=== PATIENT | male | born 1955 | race Caucasian/White ===

== ENCOUNTER 2018-05-05 06:16 | Inpatient (IN) | payer MEDICARE, MEDICAID ==
[~2018-05-05] VITALS: Ht 165.1 cm; Wt 71.1 kg
[2018-05-05] MEDS ORDERED: SODIUM CHLORIDE 0.9% 1,000 ML IV ONE (07:46)
[2018-05-05 07:51] LABS: Basophils # (auto) 0.1 uL; Eosinophils # (auto) 0.1 uL; Eosinophils % (auto) 0.5 % (0.0-7.0); Hemoglobin 11.8 g/dL (13.5-17.5); Mean Corpuscular Hgb Conc. 32.6 g/dL (32.0-36.0); Nucleated Red Blood Cells % 0.1 %
[2018-05-05 07:54] LABS: Basophils % (auto) 0.7 % (0.0-2.0); Hematocrit 36.2 % (41.0-53.0); Lymphocytes % (auto) 14.4 % (10.0-50.0); Mean Corpuscular Hemoglobin 24.1 pg (28.0-32.0); Mean Corpuscular Volume 73.8 fL (80.0-100.0); Monocytes # (auto) 0.9 uL; Monocytes % (auto) 6.8 % (0.0-12.0); Neutrophils # (auto) 10.6 uL; Neutrophils % (auto) 77.6 % (37.0-80.0); Platelet Count (auto) 566 10^3/uL (140-450); Red Cell Distribution Width 15.8 % (11.8-14.3); White Blood Cell 13.7 10^3/uL (4.4-10.8)
[2018-05-05] MEDS ORDERED: ONDANSETRON HCL 4 MG/2 ML VIAL IV ONE (08:00)
[2018-05-05] MEDS ORDERED: MORPHINE SULFATE 4 MG/ML SYR/VIAL IV ONE ×2 (08:00→10:30)
[2018-05-05 08:19] LABS: BUN/Creatinine Ratio 13.1; Potassium 3.8 mmol/L (3.5-5.1)
[2018-05-05 08:20] LABS: Albumin 3.3 g/dL (3.4-5.0); Bilirubin, Total 0.5 mg/dL (0.2-1.0); Calcium 8.5 mg/dL (8.5-10.1); Magnesium 2.8 mg/dL (1.6-2.6)
[2018-05-05 08:32] LABS: Urine WBC None Seen /hpf (0 - 3)
[2018-05-05 08:53] LABS: Urine Bacteria NONE SEEN /hpf (None Seen); Urine Blood 3+ /uL (Negative); Urine Hyaline Cast FEW /lpf (0 - 2); Urine Specific Gravity 1.014 (1.001-1.035)
[2018-05-05] MEDS ORDERED: ENOXAPARIN SOD 80 MG/0.8ML SYRINGE SC ONE ×2 (09:45→11:45)
[2018-05-05] MEDS ORDERED: cefTRIAXone 1GM/10ml IVPUSH 10 ML IV ONE (11:00)
[2018-05-05] MEDS ORDERED: VANCOMYCIN PER PHARMACY 0 MG IV SCH (11:00)
[2018-05-05] MEDS ORDERED: LOSARTAN POTASSIUM 50 MG TAB PO ONE ×2 (11:15→11:45)
[2018-05-05] MEDS ORDERED: METOPROLOL SUCCINATE XL 50 MG TAB PO ONE ×2 (11:15→11:45)
[2018-05-05] MEDS ORDERED: OXYCODONE W/ ACETAMINOPHEN 5/325MG TABLET PO PRN (11:15)
[2018-05-05] MEDS ORDERED: DULoxetine HCL 30 MG CAP PO ONE ×2 (11:15→11:45)
[2018-05-05] MEDS ORDERED: amLODIPine BESYLATE 5 MG TAB PO ONE ×2 (11:15→11:45)
[2018-05-05] MEDS ORDERED: ACETAMINOPHEN 325 MG TAB PO PRN (11:30)
[2018-05-05] MEDS ORDERED: DOCUSATE SOD 100 MG CAP PO PRN (11:30)
[2018-05-05] MEDS ORDERED: MORPHINE SULFATE 4 MG/ML SYR/VIAL IV PRN (11:30)
[2018-05-05] MEDS ORDERED: PANTOPRAZOLE 40 MG/10 ML VIAL IV ONE ×2 (11:30→11:45)
[2018-05-05] MEDS ORDERED: POTASSIUM EFFERVESENT TAB 25 MEQ PO ONE ×2 (11:30→11:45)
[2018-05-05] MEDS ORDERED: NITROGLYCERIN 0.4 MG SL TAB SL PRN (11:30)
[2018-05-05 11:36] VITALS: BP 128/87
[2018-05-05] MEDS: SODIUM CHLORIDE 0.9% 1,000 ML IV SCH ×2 (11:41→19:57)
[2018-05-05] MEDS ORDERED: cloNIDine HCL 0.1 MG TAB PO PRN (11:45)
[2018-05-05] MEDS ORDERED: ASCORBIC ACID 500 MG TAB PO ONE (11:45)
[2018-05-05] MEDS ORDERED: ZINC SULFATE 220mg CAP or TAB PO ONE (11:45)
[2018-05-05] MEDS ORDERED: TRIAMTERENE/HCTZ 37.5/25 MG CAP/TAB PO ONE (11:45)
[2018-05-05] MEDS ORDERED: MULTIPLE VITAMIN TAB PO ONE (11:45)
[2018-05-05 11:46] LABS: INR 0.99 (0.9-1.15); Prothrombin Time 10.6 sec (9.27-12.13)
[2018-05-05] MEDS: ALBUTEROL SULF 2.5 MG/0.5ML(0.5%) NEB SOLN NEB SCH ×2 (11:50→18:53)
[2018-05-05] MEDS ORDERED: VANCOMYCIN 1GM/250ML 250 ML IV ONE (12:00)
[2018-05-05] MEDS: ONDANSETRON HCL 4 MG/2 ML VIAL IV PRN (12:59)
[2018-05-05] MEDS: MORPHINE SULFATE 4 MG/ML SYR/VIAL IV PRN (13:00)
[2018-05-05] MEDS: GABAPENTIN 300 MG CAP PO SCH ×2 (15:01→22:06)
[2018-05-05 15:30] VITALS: BP 121/81
[2018-05-05] MEDS: HYDROcodone-ACET 5/325MG TAB PO PRN (16:41)
[2018-05-05 22:00] VITALS: BP 107/64
[2018-05-05] MEDS ORDERED: FAMOTIDINE 20 MG TAB PO SCH (22:00)
[2018-05-05] MEDS: ENOXAPARIN SOD 80 MG/0.8ML SYRINGE SC SCH (22:07)
[2018-05-05] MEDS: PRAVASTATIN SODIUM 20 MG TAB PO SCH (22:07)
[2018-05-05] MEDS: TEMAZEPAM 15 MG CAP PO PRN (22:07)
[2018-05-05] MEDS: MONTELUKAST SODIUM 10 MG TAB PO SCH (22:07)
[2018-05-05] MEDS: ASCORBIC ACID 500 MG TAB PO SCH (22:07)
[2018-05-06] MEDS: ALBUTEROL SULF 2.5 MG/0.5ML(0.5%) NEB SOLN NEB SCH ×4 (00:24→18:54)
[2018-05-06] MEDS: SODIUM CHLORIDE 0.9% 1,000 ML IV SCH ×3 (04:27→16:23)
[2018-05-06 05:00] VITALS: BP 103/65
[2018-05-06] MEDS: GABAPENTIN 300 MG CAP PO SCH ×3 (05:26→21:51)
[2018-05-06 06:13] LABS: Basophils # (auto) 0.1 uL; Eosinophils # (auto) 0.3 uL; Lymphocytes # (auto) 2.4 uL; Mean Corpuscular Volume 73.7 fL (80.0-100.0)
[2018-05-06 06:17] LABS: Basophils % (auto) 0.9 % (0.0-2.0); Hematocrit 29.1 % (41.0-53.0); Hemoglobin 9.5 g/dL (13.5-17.5); Lymphocytes % (auto) 22.3 % (10.0-50.0); Mean Corpuscular Hemoglobin 24.1 pg (28.0-32.0); Mean Corpuscular Hgb Conc. 32.7 g/dL (32.0-36.0); Monocytes % (auto) 9.3 % (0.0-12.0); Neutrophils # (auto) 6.9 uL; Neutrophils % (auto) 64.5 % (37.0-80.0); Nucleated Red Blood Cells % 0.1 %; Platelet Count (auto) 405 10^3/uL (140-450); Red Blood Cells 3.95 10^6/uL (4.5-5.90); Red Cell Distribution Width 15.9 % (11.8-14.3); White Blood Cell 10.7 10^3/uL (4.4-10.8)
[2018-05-06 06:32] LABS: Albumin 2.5 g/dL (3.4-5.0); BUN/Creatinine Ratio 17.6; Calcium 7.7 mg/dL (8.5-10.1); Potassium 3.2 mmol/L (3.5-5.1)
[2018-05-06 06:34] LABS: Total Protein 6.9 g/dL (6.4-8.2)
[2018-05-06] MEDS: MORPHINE SULFATE 4 MG/ML SYR/VIAL IV PRN ×2 (08:56→21:52)
[2018-05-06 08:58] VITALS: BP 103/53
[2018-05-06] MEDS ORDERED: cefTRIAXone 1GM/10ml IVPUSH 10 ML IV SCH (09:00)
[2018-05-06] MEDS ORDERED: ADENOSINE 73 MG in GIVE UN-DILUTED 0 ML IV ONE (09:30)
[2018-05-06] MEDS: amLODIPine BESYLATE 5 MG TAB PO SCH (10:00)
[2018-05-06] MEDS: METOPROLOL SUCCINATE XL 50 MG TAB PO SCH (10:00)
[2018-05-06] MEDS: TIZANIDINE 2 MG PO SCH (10:00)
[2018-05-06] MEDS: LOSARTAN POTASSIUM 50 MG TAB PO SCH (10:00)
[2018-05-06 10:28] VITALS: BP 111/61
[2018-05-06 12:18] VITALS: BP 103/61
[2018-05-06] MEDS: POTASSIUM EFFERVESENT TAB 25 MEQ PO SCH (12:26)
[2018-05-06] MEDS: ZINC SULFATE 220mg CAP or TAB PO SCH (12:29)
[2018-05-06] MEDS: DULoxetine HCL 30 MG CAP PO SCH (12:30)
[2018-05-06] MEDS: HYDROcodone-ACET 5/325MG TAB PO PRN (12:33)
[2018-05-06] MEDS: MULTIPLE VITAMIN TAB PO SCH (12:34)
[2018-05-06] MEDS: ASCORBIC ACID 500 MG TAB PO SCH ×2 (12:34→21:51)
[2018-05-06] MEDS: TRIAMTERENE/HCTZ 37.5/25 MG CAP/TAB PO SCH (12:34)
[2018-05-06] MEDS: ENOXAPARIN SOD 80 MG/0.8ML SYRINGE SC SCH (12:35)
[2018-05-06] MEDS: PANTOPRAZOLE 40 MG/10 ML VIAL IV SCH (12:37)
[2018-05-06] MEDS: SUCRALFATE 1 GM TAB PO SCH ×2 (16:22→21:50)
[2018-05-06 17:13] VITALS: BP 127/74
[2018-05-06] MEDS: AMIODARONE HCL 200 MG TAB PO SCH ×2 (18:33→21:50)
[2018-05-06] MEDS: MONTELUKAST SODIUM 10 MG TAB PO SCH (21:51)
[2018-05-06] MEDS: APIXABAN 5 MG TAB PO SCH (21:51)
[2018-05-06] MEDS: PRAVASTATIN SODIUM 20 MG TAB PO SCH (21:51)
[2018-05-06] MEDS: TEMAZEPAM 15 MG CAP PO PRN (21:52)
[2018-05-06 22:19] VITALS: BP 111/69
[2018-05-07] MEDS: ALBUTEROL SULF 2.5 MG/0.5ML(0.5%) NEB SOLN NEB SCH ×4 (00:13→19:09)
[2018-05-07] MEDS: MORPHINE SULFATE 4 MG/ML SYR/VIAL IV PRN ×2 (02:18→13:43)
[2018-05-07] MEDS: SODIUM CHLORIDE 0.9% 1,000 ML IV SCH ×3 (04:47→20:26)
[2018-05-07 05:00] VITALS: BP 124/71
[2018-05-07] MEDS: GABAPENTIN 300 MG CAP PO SCH ×3 (06:34→20:27)
[2018-05-07] MEDS: SUCRALFATE 1 GM TAB PO SCH ×4 (06:35→20:27)
[2018-05-07 06:53] LABS: Basophils # (auto) 0.1 uL; Hemoglobin 9.7 g/dL (13.5-17.5); Lymphocytes # (auto) 2.1 uL
[2018-05-07 06:54] LABS: Basophils % (auto) 0.7 % (0.0-2.0); Eosinophils # (auto) 0.2 uL; Eosinophils % (auto) 1.5 % (0.0-7.0); Hematocrit 30.8 % (41.0-53.0); Lymphocytes % (auto) 17.8 % (10.0-50.0); Mean Corpuscular Hemoglobin 23.2 pg (28.0-32.0); Mean Corpuscular Hgb Conc. 31.5 g/dL (32.0-36.0); Mean Corpuscular Volume 73.6 fL (80.0-100.0); Monocytes # (auto) 1.4 uL; Monocytes % (auto) 11.6 % (0.0-12.0); Neutrophils # (auto) 8.2 uL; Neutrophils % (auto) 68.4 % (37.0-80.0); Nucleated Red Blood Cells % 0.1 %; Platelet Count (auto) 424 10^3/uL (140-450); Red Blood Cells 4.19 10^6/uL (4.5-5.90); Red Cell Distribution Width 15.8 % (11.8-14.3)
[2018-05-07 07:13] LABS: BUN/Creatinine Ratio 13.2; Calcium 8.1 mg/dL (8.5-10.1); Potassium 3.2 mmol/L (3.5-5.1)
[2018-05-07 08:00] VITALS: BP_SYST 103; BP_SYST 118; BP_DIAS 61; BP_DIAS 70
[2018-05-07] MEDS: PANTOPRAZOLE 40 MG/10 ML VIAL IV SCH ×2 (09:33→20:26)
[2018-05-07] MEDS: METOPROLOL SUCCINATE XL 50 MG TAB PO SCH (09:34)
[2018-05-07] MEDS: APIXABAN 5 MG TAB PO SCH ×2 (09:34→20:27)
[2018-05-07] MEDS: AMIODARONE HCL 200 MG TAB PO SCH ×2 (09:34→20:27)
[2018-05-07] MEDS: LOSARTAN POTASSIUM 50 MG TAB PO SCH (09:35)
[2018-05-07] MEDS: ZINC SULFATE 220mg CAP or TAB PO SCH (09:35)
[2018-05-07] MEDS: DULoxetine HCL 30 MG CAP PO SCH (09:35)
[2018-05-07] MEDS: TRIAMTERENE/HCTZ 37.5/25 MG CAP/TAB PO SCH (09:35)
[2018-05-07] MEDS: MULTIPLE VITAMIN TAB PO SCH (09:35)
[2018-05-07] MEDS: amLODIPine BESYLATE 5 MG TAB PO SCH (09:36)
[2018-05-07] MEDS: ASCORBIC ACID 500 MG TAB PO SCH ×2 (09:36→20:28)
[2018-05-07] MEDS: POTASSIUM EFFERVESENT TAB 25 MEQ PO SCH (09:36)
[2018-05-07] MEDS: TIZANIDINE 2 MG PO SCH (09:41)
[2018-05-07] MEDS ORDERED: POTASSIUM CHL 20 Meq TABLET PO SCH ×2 (10:00→20:00)
[2018-05-07] MEDS ORDERED: TRIATAB3 PO (12:29)
[2018-05-07] MEDS ORDERED: DULO20CA PO (12:29)
[2018-05-07] MEDS ORDERED: PERCOT PO (12:29)
[2018-05-07] MEDS ORDERED: TIZA2CAP12 PO (12:29)
[2018-05-07] MEDS ORDERED: LOSA-49 PO (12:29)
[2018-05-07] MEDS ORDERED: PANT1INJ3 PO (12:29)
[2018-05-07] MEDS ORDERED: PRAV20TA3 PO (12:29)
[2018-05-07] MEDS ORDERED: GABA300C10 PO (12:29)
[2018-05-07] MEDS ORDERED: AMLO5TAB13 PO (12:29)
[2018-05-07] MEDS ORDERED: METO-169 PO (12:29)
[2018-05-07] MEDS ORDERED: MONT5CHW17 PO (12:29)
[2018-05-07 13:00] VITALS: BP_SYST 128; BP_SYST 140; BP_DIAS 71; BP_DIAS 83
[2018-05-07] MEDS: ONDANSETRON HCL 4 MG/2 ML VIAL IV PRN (14:03)
[2018-05-07 16:00] VITALS: BP 109/78
[2018-05-07] MEDS: HYDROcodone-ACET 5/325MG TAB PO PRN (19:10)
[2018-05-07] MEDS: MONTELUKAST SODIUM 10 MG TAB PO SCH (20:28)
[2018-05-07] MEDS: PRAVASTATIN SODIUM 20 MG TAB PO SCH (20:28)
[2018-05-07] MEDS: TEMAZEPAM 15 MG CAP PO PRN (20:28)
[2018-05-07 22:00] VITALS: BP 94/54
[2018-05-08] VITALS (7 sets, daily range): BP systolic 105–128; BP diastolic 52–75
[2018-05-08] MEDS: ALBUTEROL SULF 2.5 MG/0.5ML(0.5%) NEB SOLN NEB SCH ×5 (00:11→18:35)
[2018-05-08] MEDS: HYDROcodone-ACET 5/325MG TAB PO PRN ×3 (03:44→13:48)
[2018-05-08] MEDS: GABAPENTIN 300 MG CAP PO SCH ×3 (05:53→20:31)
[2018-05-08] MEDS: SUCRALFATE 1 GM TAB PO SCH ×4 (05:53→20:30)
[2018-05-08] MEDS: SODIUM CHLORIDE 0.9% 1,000 ML IV SCH ×3 (05:53→23:01)
[2018-05-08 06:07] LABS: Basophils # (auto) 0.1 uL; Eosinophils # (auto) 0.2 uL; Eosinophils % (auto) 1.3 % (0.0-7.0); Monocytes # (auto) 1.6 uL; Nucleated Red Blood Cells % 0.1 %; Platelet Count (auto) 382 10^3/uL (140-450); Red Blood Cells 3.73 10^6/uL (4.5-5.90)
[2018-05-08 06:13] LABS: Basophils % (auto) 0.6 % (0.0-2.0); Hematocrit 27.1 % (41.0-53.0); Lymphocytes # (auto) 1.8 uL; Lymphocytes % (auto) 14.1 % (10.0-50.0); Mean Corpuscular Hgb Conc. 33.1 g/dL (32.0-36.0); Mean Corpuscular Volume 72.6 fL (80.0-100.0); Monocytes % (auto) 12.6 % (0.0-12.0); Neutrophils # (auto) 9.2 uL; Neutrophils % (auto) 71.4 % (37.0-80.0); Red Cell Distribution Width 16.1 % (11.8-14.3); White Blood Cell 12.9 10^3/uL (4.4-10.8)
[2018-05-08 06:28] LABS: Calcium 7.6 mg/dL (8.5-10.1)
[2018-05-08 06:30] LABS: Potassium 2.9 mmol/L (3.5-5.1)
[2018-05-08 06:31] LABS: BUN/Creatinine Ratio 9.2
[2018-05-08] MEDS ORDERED: POTASSIUM CHL 20 Meq TABLET PO ONE (06:45)
[2018-05-08] MEDS: APIXABAN 5 MG TAB PO SCH ×2 (08:52→20:31)
[2018-05-08] MEDS: DULoxetine HCL 30 MG CAP PO SCH (08:52)
[2018-05-08] MEDS: ZINC SULFATE 220mg CAP or TAB PO SCH (08:52)
[2018-05-08] MEDS: PANTOPRAZOLE 40 MG/10 ML VIAL IV SCH ×2 (08:52→20:29)
[2018-05-08] MEDS: LOSARTAN POTASSIUM 50 MG TAB PO SCH (08:53)
[2018-05-08] MEDS: TRIAMTERENE/HCTZ 37.5/25 MG CAP/TAB PO SCH (08:53)
[2018-05-08] MEDS: MULTIPLE VITAMIN TAB PO SCH (08:54)
[2018-05-08] MEDS: METOPROLOL SUCCINATE XL 50 MG TAB PO SCH (08:54)
[2018-05-08] MEDS: amLODIPine BESYLATE 5 MG TAB PO SCH (08:55)
[2018-05-08] MEDS: TIZANIDINE 2 MG PO SCH (08:55)
[2018-05-08] MEDS: AMIODARONE HCL 200 MG TAB PO SCH ×2 (08:55→20:30)
[2018-05-08] MEDS: ASCORBIC ACID 500 MG TAB PO SCH ×2 (08:55→20:32)
[2018-05-08] MEDS: POTASSIUM EFFERVESENT TAB 25 MEQ PO SCH (08:56)
[2018-05-08] MEDS: POTASSIUM CHL 20 Meq TABLET PO SCH ×3 (10:15→20:31)
[2018-05-08] MEDS ORDERED: HYDROcodone-ACET 5/325MG TAB PO ONE (16:00)
[2018-05-08] MEDS ORDERED: HYDROcodone-ACET 10/325MG TAB PO PRN ×2 (16:00→16:15)
[2018-05-08] MEDS: Ensure Enlive Strawberry 8oz Bottle PO SCH (18:00)
[2018-05-08] MEDS: PRAVASTATIN SODIUM 20 MG TAB PO SCH (20:31)
[2018-05-08] MEDS: MONTELUKAST SODIUM 10 MG TAB PO SCH (20:32)
[2018-05-08] MEDS: HYDROcodone-ACET 10/325MG TAB PO PRN (20:33)
[2018-05-08] MEDS ORDERED: CYCLOBENZAPRINE HCL 10 MG TAB PO ONE (22:30)
[2018-05-08] MEDS ORDERED: LOPERAMIDE HCL 2 MG CAP PO SCH (23:00)
[2018-05-08] MEDS ORDERED: LOPERAMIDE HCL 2 MG CAP PO ONE (23:00)
[2018-05-09] MEDS: ALBUTEROL SULF 2.5 MG/0.5ML(0.5%) NEB SOLN NEB SCH ×4 (00:22→18:37)
[2018-05-09 04:32] VITALS: BP 120/81
[2018-05-09 06:34] LABS: Basophils # (auto) 0.1 uL; Eosinophils # (auto) 0.2 uL; Hemoglobin 9.1 g/dL (13.5-17.5); Lymphocytes # (auto) 1.8 uL; Lymphocytes % (auto) 15.1 % (10.0-50.0)
[2018-05-09] MEDS: HYDROcodone-ACET 10/325MG TAB PO PRN ×2 (06:36→13:42)
[2018-05-09] MEDS: SODIUM CHLORIDE 0.9% 1,000 ML IV SCH ×2 (06:36→15:20)
[2018-05-09] MEDS: GABAPENTIN 300 MG CAP PO SCH ×2 (06:36→14:00)
[2018-05-09] MEDS: SUCRALFATE 1 GM TAB PO SCH ×3 (06:36→17:00)
[2018-05-09 06:37] LABS: Basophils % (auto) 0.5 % (0.0-2.0); Eosinophils % (auto) 1.7 % (0.0-7.0); Hematocrit 28.1 % (41.0-53.0); Mean Corpuscular Hemoglobin 23.8 pg (28.0-32.0); Mean Corpuscular Hgb Conc. 32.5 g/dL (32.0-36.0); Mean Corpuscular Volume 73.4 fL (80.0-100.0); Monocytes # (auto) 1.3 uL; Monocytes % (auto) 11.2 % (0.0-12.0); Neutrophils # (auto) 8.6 uL; Neutrophils % (auto) 71.5 % (37.0-80.0); Platelet Count (auto) 418 10^3/uL (140-450); Red Blood Cells 3.83 10^6/uL (4.5-5.90); Red Cell Distribution Width 16.4 % (11.8-14.3)
[2018-05-09 06:43] LABS: BUN/Creatinine Ratio 10.8; Calcium 7.7 mg/dL (8.5-10.1); Potassium 3.9 mmol/L (3.5-5.1)
[2018-05-09 08:00] VITALS: BP 110/77
[2018-05-09 09:24] VITALS: BP 110/77
[2018-05-09] MEDS: TIZANIDINE 2 MG PO SCH (10:00)
[2018-05-09] MEDS: Ensure Enlive Strawberry 8oz Bottle PO SCH ×2 (10:19→18:00)
[2018-05-09 11:59] VITALS: BP 117/77
[2018-05-09] MEDS: ZINC SULFATE 220mg CAP or TAB PO SCH (13:36)
[2018-05-09] MEDS: PANTOPRAZOLE 40 MG/10 ML VIAL IV SCH (13:36)
[2018-05-09] MEDS: AMIODARONE HCL 200 MG TAB PO SCH (13:37)
[2018-05-09] MEDS: LOSARTAN POTASSIUM 50 MG TAB PO SCH (13:37)
[2018-05-09] MEDS: DULoxetine HCL 30 MG CAP PO SCH (13:39)
[2018-05-09] MEDS: POTASSIUM EFFERVESENT TAB 25 MEQ PO SCH (13:39)
[2018-05-09] MEDS: TRIAMTERENE/HCTZ 37.5/25 MG CAP/TAB PO SCH (13:39)
[2018-05-09] MEDS: APIXABAN 5 MG TAB PO SCH (13:39)
[2018-05-09] MEDS: METOPROLOL SUCCINATE XL 50 MG TAB PO SCH (13:40)
[2018-05-09] MEDS: MULTIPLE VITAMIN TAB PO SCH (13:40)
[2018-05-09] MEDS: amLODIPine BESYLATE 5 MG TAB PO SCH (13:40)
[2018-05-09] MEDS: ASCORBIC ACID 500 MG TAB PO SCH (13:41)
[2018-05-09 16:58] VITALS: BP 119/74
[2018-05-09 17:13] VITALS: BP 110/77
[2018-05-13] MEDS ORDERED: APIXABAN 5 MG TAB PO SCH (22:00)
== END 2018-05-09 18:30 | DRG 682 ==
LOC: EDBD 06:16 → ER 06:23 → TELE 06:24 → TELE-EAST 15:37
PROVIDERS: ADMIT Internal Medicine; ATTEND Internal Medicine
DX: N17.0 Acute kidney failure with tubular necrosis (principal); E43 Unspecified severe protein-calorie malnutrition; I82.412 Acute embolism and thrombosis of left femoral vein; E87.1 Hypo-osmolality and hyponatremia; I31.3 Pericardial effusion (noninflammatory); I82.442 Acute embolism and thrombosis of left tibial vein; N18.3 Chronic kidney disease, stage 3 (moderate); I12.9 Hypertensive chronic kidney disease with stage 1 through stage 4 chronic kidney disease, or unspecified chronic kidney disease; E83.42 Hypomagnesemia; E78.5 Hyperlipidemia, unspecified; J45.909 Unspecified asthma, uncomplicated; F32.9 Major depressive disorder, single episode, unspecified; E87.6 Hypokalemia; E86.0 Dehydration; D63.8 Anemia in other chronic diseases classified elsewhere; I73.9 Peripheral vascular disease, unspecified; I25.10 Atherosclerotic heart disease of native coronary artery without angina pectoris; K59.00 Constipation, unspecified; K80.20 Calculus of gallbladder without cholecystitis without obstruction; Z96.659 Presence of unspecified artificial knee joint; Z87.11 Personal history of peptic ulcer disease; Z68.26 Body mass index [BMI] 26.0-26.9, adult; Z88.0 Allergy status to penicillin; Z91.010 Allergy to peanuts; Z82.49 Family history of ischemic heart disease and other diseases of the circulatory system; Z90.81 Acquired absence of spleen
CPT/HCPCS: 36415; 51702; 74176; 78452; 80048; 80053; 80202; 81001; 83540; 83605; 83735; 84443; 85025; 85610; 87040; 87086; 93005; 93017; 93306; 93970; 94640; 96361; 96372; 96374; 96375; 96376; A6257; C9113; J0153; J0696; J2405

== ENCOUNTER 2021-11-18 07:28 | Emergency (ER) | payer BC, MEDICAID, MEDICARE ==
[~2021-11-18] VITALS: Ht 175.3 cm; Wt 77.1 kg
[~2021-11-18 07:28] MED LIST: AMLO-489 PO; DULO20CA PO; GABA300C10 PO; LOSA-39 PO; METO-289 PO; MONT5CHW23 PO; PANT1INJ3 PO; PERCOT PO; PRAV20TA3 PO; TIZA2CAP12 PO; TRIATAB3 PO
[2021-11-18] MEDS ORDERED: ONDANSETRON HCL 4 MG/2 ML VIAL IV ONE ×3 (08:45→14:15)
[2021-11-18] MEDS ORDERED: MORPHINE SULFATE 4 MG/ML SYR/VIAL IV ONE ×3 (08:45→14:15)
[2021-11-18] MEDS ORDERED: SODIUM CHLORIDE 0.9% 1,000 ML IV ONE (10:15)
[2021-11-18] MEDS ORDERED: SODIUM CHLORIDE 0.9% 1,000 ML IVB ONE (10:15)
[2021-11-18 11:04] LABS: Basophils # (auto) 0.1 10 ^3/uL (0-0.2); Eosinophils # (auto) 0 10 ^3/uL (0-0.8); Lymphocytes # (auto) 1.2 10 ^3/uL (0.4-5.4); Monocytes # (auto) 0.6 10 ^3/uL (0-1.3)
[2021-11-18 11:05] LABS: Basophils % (auto) 0.8 % (0.0-2.0); Eosinophils % (auto) 0.1 % (0.0-7.0); Hematocrit 42.6 % (41.0-53.0); Hemoglobin 13.8 g/dL (13.5-17.5); Lymphocytes % (auto) 8.9 % (10.0-50.0); Mean Corpuscular Hemoglobin 24.2 pg (28.0-32.0); Mean Corpuscular Hgb Conc. 32.5 g/dL (32.0-36.0); Mean Corpuscular Volume 74.6 fL (80.0-100.0); Monocytes % (auto) 4.2 % (0.0-12.0); Neutrophils # (auto) 11.8 10 ^3/uL (1.6-8.6); Nucleated Red Blood Cells % 0.3 %; Red Blood Cells 5.71 10^6/uL (4.5-5.90); White Blood Cell 13.7 10^3/uL (4.4-10.8)
[2021-11-18 11:21] LABS: INR 1.03 (0.9-1.15); Partial Thromboplastin Time 20.2 sec (23.6-33.0)
[2021-11-18 11:43] LABS: Albumin 3.4 g/dL (3.4-5.0); Calcium 8.5 mg/dL (8.5-10.1); Magnesium 2.4 mg/dL (1.6-2.6)
[2021-11-18 11:46] LABS: BUN/Creatinine Ratio 12.6; Total Protein 7.5 g/dL (6.4-8.2)
[2021-11-18 14:09] VITALS: BP 142/85
== END 2021-11-18 14:19 | disposition short-term general hospital (02) ==
LOC: EDUNIT# 07:28 → ER 07:28
DX: S42.402A Unspecified fracture of lower end of left humerus, initial encounter for closed fracture (principal); S63.502A Unspecified sprain of left wrist, initial encounter; S40.012A Contusion of left shoulder, initial encounter; R94.31 Abnormal electrocardiogram [ECG] [EKG]; Z20.822 Contact with and (suspected) exposure to COVID-19; W01.0XXA Fall on same level from slipping, tripping and stumbling without subsequent striking against object, initial encounter; Y93.89 Activity, other specified; Y92.098 Other place in other non-institutional residence as the place of occurrence of the external cause; Y99.8 Other external cause status
CPT/HCPCS: 29105; 36415; 71045; 73030; 73060; 73080; 73110; 80053; 83735; 84443; 85025; 85610; 85730; 87426; 93005; 96361; 96374; 96375; 96376; 99285; J2270; J2405; J7030

== ENCOUNTER → 2022-07-11 | Outpatient (CLI) | payer BC ==
[2022-07-11 11:00] LABS: Eosinophils # (auto) 0.1 10 ^3/uL (0-0.8); Monocytes # (auto) 0.8 10 ^3/uL (0-1.3); Nucleated Red Blood Cells % 0.2 %
[2022-07-11 11:03] LABS: Basophils # (auto) 0 10 ^3/uL (0-0.2); Basophils % (auto) 0.3 % (0.0-2.0); Eosinophils % (auto) 0.8 % (0.0-7.0); Hematocrit 44.8 % (41.0-53.0); Hemoglobin 14.5 g/dL (13.5-17.5); Lymphocytes # (auto) 2.7 10 ^3/uL (0.4-5.4); Lymphocytes % (auto) 29.9 % (10.0-50.0); Mean Corpuscular Hemoglobin 24.1 pg (28.0-32.0); Mean Corpuscular Hgb Conc. 32.3 g/dL (32.0-36.0); Mean Corpuscular Volume 74.7 fL (80.0-100.0); Monocytes % (auto) 9.1 % (0.0-12.0); Neutrophils # (auto) 5.4 10 ^3/uL (1.6-8.6); Neutrophils % (auto) 59.9 % (37.0-80.0); Red Blood Cells 6.01 10^6/uL (4.5-5.90); Red Cell Distribution Width 16.1 % (11.8-14.3); White Blood Cell 9.1 10^3/uL (4.4-10.8)
[2022-07-11 12:00] LABS: Albumin 4.3 g/dL (3.4-5.0); BUN/Creatinine Ratio 14.5; Bilirubin, Total 1.5 mg/dL (0.2-1.0); Calcium 9.3 mg/dL (8.5-10.1); Potassium 3.9 mmol/L (3.5-5.1); Total Protein 8.4 g/dL (6.4-8.2)
== END | disposition home or self-care (01) ==
LOC: LAB 10:27
PROVIDERS: ATTEND Internal Medicine
DX: I10 Essential (primary) hypertension (principal); E78.5 Hyperlipidemia, unspecified
CPT/HCPCS: 36415; 80053; 80061; 84153; 84403; 84443; 85025

== ENCOUNTER → 2022-07-16 | Outpatient (CLI) | payer BC | END | disposition home or self-care (01) | LOC: LAB 10:00 | PROVIDERS: ATTEND Internal Medicine | DX: I10 Essential (primary) hypertension (principal); E78.5 Hyperlipidemia, unspecified | CPT/HCPCS: 82270 ==

== ENCOUNTER → 2023-03-13 | Outpatient (CLI) | payer BC ==
[~2023-03-13] MED LIST changes: -AMLO-489 PO; +AMLO1TAB22 PO; +GABA-1250 PO; -GABA300C10 PO; -LOSA-39 PO; +LOSA100T58 PO; +MONT5CHW12 PO; -MONT5CHW23 PO
[2023-03-13 08:05] LABS: Eosinophils # (auto) 0.2 10 ^3/uL (0-0.8); Hematocrit 41.6 % (41.0-53.0); Hemoglobin 13.5 g/dL (13.5-17.5); Monocytes # (auto) 1.1 10 ^3/uL (0-1.3); Neutrophils # (auto) 4.7 10 ^3/uL (1.6-8.6)
[2023-03-13 08:07] LABS: Basophils # (auto) 0.1 10 ^3/uL (0-0.2); Basophils % (auto) 1.5 % (0.0-2.0); Eosinophils % (auto) 1.8 % (0.0-7.0); Lymphocytes # (auto) 3.1 10 ^3/uL (0.4-5.4); Mean Corpuscular Hemoglobin 24.2 pg (28.0-32.0); Mean Corpuscular Hgb Conc. 32.3 g/dL (32.0-36.0); Mean Corpuscular Volume 74.8 fL (80.0-100.0); Monocytes % (auto) 11.6 % (0.0-12.0); Neutrophils % (auto) 51.1 % (37.0-80.0); Nucleated Red Blood Cells % 0.2 %; Red Blood Cells 5.57 10^6/uL (4.5-5.90); Red Cell Distribution Width 15.6 % (11.8-14.3); White Blood Cell 9.2 10^3/uL (4.4-10.8)
[2023-03-13 08:31] LABS: Urine Bacteria NONE SEEN /hpf (None Seen); Urine Blood Negative /uL (Negative); Urine Specific Gravity 1.014 (1.001-1.035); Urine WBC <1 /hpf (0 - 3)
[2023-03-13 08:46] LABS: Albumin 3.8 g/dL (3.4-5.0); Potassium 4.3 mmol/L (3.5-5.1)
[2023-03-13 08:58] LABS: BUN/Creatinine Ratio 14.8 (10.0-20.0); Bilirubin, Total 1.3 mg/dL (0.2-1.0); Calcium 9.2 mg/dL (8.5-10.1); Total Protein 8.5 g/dL (6.4-8.2)
== END | disposition home or self-care (01) ==
LOC: LAB 07:49
PROVIDERS: ATTEND Internal Medicine
DX: I10 Essential (primary) hypertension (principal)
CPT/HCPCS: 36415; 80053; 80061; 81001; 84439; 84443; 85025

== ENCOUNTER 2023-07-23 02:21 | Emergency (ER) | payer BC ==
[~2023-07-23] VITALS: Ht 154.9 cm; Wt 81.8 kg
[2023-07-23 07:41] VITALS: BP 152/91; PULSE 100; RESP 18; TEMP 97.6; O2SAT 100
== END 2023-07-23 09:54 | disposition home or self-care (01) ==
LOC: ER 02:21 → EDBD 02:21 → ER 09:53
DX: M25.461 Effusion, right knee (principal); M25.561 Pain in right knee; I10 Essential (primary) hypertension; M19.90 Unspecified osteoarthritis, unspecified site; E78.5 Hyperlipidemia, unspecified; Z88.8 Allergy status to other drugs, medicaments and biological substances; Z79.899 Other long term (current) drug therapy; Z91.010 Allergy to peanuts; W01.0XXA Fall on same level from slipping, tripping and stumbling without subsequent striking against object, initial encounter; Y93.01 Activity, walking, marching and hiking; Y92.89 Other specified places as the place of occurrence of the external cause; Y99.8 Other external cause status
CPT/HCPCS: 73562; 73700

== ENCOUNTER → 2023-08-09 | Outpatient (CLI) | payer BC ==
[2023-08-09 06:25] LABS: Urine WBC None Seen /hpf (0 - 3)
[2023-08-09 06:38] LABS: Urine Bacteria NONE SEEN /hpf (None Seen); Urine Blood Negative /uL (Negative); Urine Clarity Clear (Clear); Urine Protein, UAD Negative (Negative); Urine Specific Gravity 1.009 (1.001-1.035); Urine Urobilinogen Normal (Negative)
[2023-08-09 06:48] LABS: Basophils # (auto) 0.2 10 ^3/uL (0-0.2); Basophils % (auto) 1.6 % (0.0-2.0); Eosinophils # (auto) 0.2 10 ^3/uL (0-0.8); Hemoglobin 13.4 g/dL (13.5-17.5); Mean Corpuscular Hemoglobin 24.4 pg (28.0-32.0)
[2023-08-09 06:51] LABS: Hematocrit 40.9 % (41.0-53.0); Lymphocytes # (auto) 2.5 10 ^3/uL (0.4-5.4); Lymphocytes % (auto) 22.7 % (10.0-50.0); Mean Corpuscular Hgb Conc. 32.8 g/dL (32.0-36.0); Mean Corpuscular Volume 74.4 fL (80.0-100.0); Monocytes # (auto) 1.1 10 ^3/uL (0-1.3); Monocytes % (auto) 10.5 % (0.0-12.0); Neutrophils # (auto) 6.8 10 ^3/uL (1.6-8.6); Neutrophils % (auto) 63.2 % (37.0-80.0); Red Cell Distribution Width 15.8 % (11.8-14.3); White Blood Cell 10.8 10^3/uL (4.4-10.8)
[2023-08-09 06:56] LABS: Urine Color STRAW (Yellow)
[2023-08-09 08:28] LABS: Alanine Aminotransferase 17 U/L (7-40); Alkaline Phosphatase 76 U/L (46-116); Anion Gap 10 (5-15); BUN/Creatinine Ratio 11.7 (10.0-20.0); Blood Urea Nitrogen 11 mg/dL (9-23); Calcium 9.3 mg/dL (8.5-10.1); Carbon Dioxide 25 mmol/L (20-30); Chloride 103 mmol/L (98-107); Glucose 95 mg/dL (74-106); LDL Cholesterol 100 mg/dL (< 100); Potassium 3.5 mmol/L (3.5-5.1); Sodium 138 mmol/L (136-145); Triglycerides 97 mg/dL (< 150)
[2023-08-09 08:29] LABS: Albumin 4.4 g/dL (3.2-4.8); Aspartate Aminotransferase 24 U/L (13-40); Bilirubin, Total 1.3 mg/dL (0.2-1.0); Cholesterol 171 mg/dL (< 200); HDL Cholesterol 61 mg/dL (40-59); Total Protein 7.9 g/dL (5.7-8.2)
[2023-08-09 10:41] LABS: Magnesium 2.1 mg/dL (1.6-2.6)
[2023-08-09 10:44] LABS: Prostate Specific Antigen 0.08 ng/mL (0.0-4.0)
[2023-08-09 10:47] LABS: Free T3 4.08 pg/mL (2.3-4.2)
[2023-08-09 10:48] LABS: Free T4 (Free Thyroxine) 1.12 ng/dL (0.89-1.76)
== END | disposition home or self-care (01) ==
LOC: LAB 06:14
PROVIDERS: ATTEND Internal Medicine
DX: I12.9 Hypertensive chronic kidney disease with stage 1 through stage 4 chronic kidney disease, or unspecified chronic kidney disease (principal); N18.2 Chronic kidney disease, stage 2 (mild); E78.5 Hyperlipidemia, unspecified; K21.9 Gastro-esophageal reflux disease without esophagitis
CPT/HCPCS: 36415; 80053; 80061; 81001; 83735; 84153; 84439; 84443; 84481; 85025

== ENCOUNTER → 2023-09-12 | Outpatient (CLI) | payer BC ==
[2023-09-12 07:13] LABS: Basophils # (auto) 0.1 10 ^3/uL (0-0.2); Hemoglobin 13.5 g/dL (13.5-17.5); Lymphocytes # (auto) 2.6 10 ^3/uL (0.4-5.4); Monocytes # (auto) 0.9 10 ^3/uL (0-1.3)
[2023-09-12 07:15] LABS: Basophils % (auto) 1.4 % (0.0-2.0); Eosinophils # (auto) 0.2 10 ^3/uL (0-0.8); Eosinophils % (auto) 2.1 % (0.0-7.0); Mean Corpuscular Hemoglobin 24.6 pg (28.0-32.0); Mean Corpuscular Volume 74.7 fL (80.0-100.0); Monocytes % (auto) 10.2 % (0.0-12.0); Neutrophils # (auto) 4.9 10 ^3/uL (1.6-8.6); Neutrophils % (auto) 56.3 % (37.0-80.0); Nucleated Red Blood Cells % 0.2 %; Red Blood Cells 5.48 10^6/uL (4.5-5.90); Red Cell Distribution Width 15.7 % (11.8-14.3); White Blood Cell 8.6 10^3/uL (4.4-10.8)
[2023-09-12 07:43] LABS: Prostate Specific Antigen 0.08 ng/mL (0.0-4.0)
[2023-09-12 07:47] LABS: T3 Total 1.48 ng/mL (0.60-1.81)
[2023-09-12 07:48] LABS: Free T4 (Free Thyroxine) 1.18 ng/dL (0.89-1.76)
[2023-09-12 08:03] LABS: Magnesium 2.1 mg/dL (1.6-2.6)
== END | disposition home or self-care (01) ==
LOC: LAB 06:27
PROVIDERS: ATTEND Nurse Practitioner Gerontology
DX: Z00.01 Encounter for general adult medical examination with abnormal findings (principal); Z12.5 Encounter for screening for malignant neoplasm of prostate; Z13.1 Encounter for screening for diabetes mellitus; I12.9 Hypertensive chronic kidney disease with stage 1 through stage 4 chronic kidney disease, or unspecified chronic kidney disease; N18.2 Chronic kidney disease, stage 2 (mild); E78.5 Hyperlipidemia, unspecified
CPT/HCPCS: 36415; 80061; 83036; 83735; 84153; 84439; 84443; 84480; 85025

== ENCOUNTER → 2023-10-14 | Outpatient (CLI) | payer BC ==
[2023-10-14 06:26] LABS: Eosinophils # (auto) 0.3 10 ^3/uL (0-0.8); Hemoglobin 13.4 g/dL (13.5-17.5); Mean Corpuscular Volume 74.7 fL (80.0-100.0); Nucleated Red Blood Cells % 0.1 %
[2023-10-14 06:27] LABS: Basophils # (auto) 0.2 10 ^3/uL (0-0.2); Basophils % (auto) 2.7 % (0.0-2.0); Eosinophils % (auto) 3.2 % (0.0-7.0); Hematocrit 41.8 % (41.0-53.0); Lymphocytes % (auto) 35.9 % (10.0-50.0); Mean Corpuscular Hgb Conc. 32.1 g/dL (32.0-36.0); Monocytes # (auto) 0.9 10 ^3/uL (0-1.3); Monocytes % (auto) 10.4 % (0.0-12.0); Neutrophils % (auto) 47.8 % (37.0-80.0); White Blood Cell 8.3 10^3/uL (4.4-10.8)
[2023-10-14 07:16] LABS: Alanine Aminotransferase 20 U/L (7-40); Albumin 4.4 g/dL (3.2-4.8); Alkaline Phosphatase 72 U/L (46-116); Anion Gap 2 (5-15); Aspartate Aminotransferase 24 U/L (13-40); BUN/Creatinine Ratio 13.5 (10.0-20.0); Bilirubin, Total 1.3 mg/dL (0.2-1.0); Blood Urea Nitrogen 13 mg/dL (9-23); Calcium 9.8 mg/dL (8.5-10.1); Carbon Dioxide 32 mmol/L (20-30); Chloride 105 mmol/L (98-107); Cholesterol 178 mg/dL (< 200); Glucose 88 mg/dL (74-106); HDL Cholesterol 67 mg/dL (40-59); LDL Cholesterol 100 mg/dL (< 100); Potassium 3.9 mmol/L (3.5-5.1); Sodium 139 mmol/L (136-145); Total Protein 7.9 g/dL (5.7-8.2); Triglycerides 80 mg/dL (< 150)
== END ==
LOC: LAB 06:14
PROVIDERS: ATTEND Nurse Practitioner Gerontology
DX: E78.49 Other hyperlipidemia (principal); D64.9 Anemia, unspecified; R94.4 Abnormal results of kidney function studies
CPT/HCPCS: 36415; 80053; 80061; 85025

== ENCOUNTER → 2024-04-07 | Outpatient (CLI) | payer BC ==
[~2024-04-07] MED LIST changes: +LOSA-535 PO; -LOSA100T58 PO; -TIZA2CAP12 PO; +TIZA2CAP13 PO
[2024-04-07 07:07] LABS: Basophils # (auto) 0.3 10 ^3/uL (0-0.2); Basophils % (auto) 3.3 % (0.0-2.0); Eosinophils # (auto) 0.2 10 ^3/uL (0-0.8); Lymphocytes # (auto) 2.9 10 ^3/uL (0.4-5.4); Nucleated Red Blood Cells % 0.1 %
[2024-04-07 07:10] LABS: Eosinophils % (auto) 2.4 % (0.0-7.0); Hematocrit 40.6 % (41.0-53.0); Hemoglobin 13.5 g/dL (13.5-17.5); Lymphocytes % (auto) 33.3 % (10.0-50.0); Mean Corpuscular Hemoglobin 24.9 pg (28.0-32.0); Mean Corpuscular Hgb Conc. 33.2 g/dL (32.0-36.0); Mean Corpuscular Volume 75.1 fL (80.0-100.0); Monocytes # (auto) 0.9 10 ^3/uL (0-1.3); Monocytes % (auto) 10.8 % (0.0-12.0); Neutrophils # (auto) 4.4 10 ^3/uL (1.6-8.6); Neutrophils % (auto) 50.2 % (37.0-80.0); Platelet Count (auto) 566 10^3/uL (140-450); Red Cell Distribution Width 15.9 % (11.8-14.3); White Blood Cell 8.7 10^3/uL (4.4-10.8)
[2024-04-07 07:33] LABS: Alanine Aminotransferase 19 U/L (7-40); Albumin 4.3 g/dL (3.2-4.8); Alkaline Phosphatase 62 U/L (46-116); Anion Gap 6 (5-15); Aspartate Aminotransferase 18 U/L (13-40); BUN/Creatinine Ratio 11.5 (10.0-20.0); Bilirubin, Total 1.2 mg/dL (0.2-1.0); Blood Urea Nitrogen 12 mg/dL (9-23); Calcium 9.9 mg/dL (8.7-10.4); Carbon Dioxide 28 mmol/L (20-30); Chloride 106 mmol/L (98-107); Glucose 90 mg/dL (74-106); Magnesium 2.1 mg/dL (1.6-2.6); Potassium 3.7 mmol/L (3.5-5.1); Sodium 140 mmol/L (136-145); Total Protein 7.6 g/dL (5.7-8.2)
== END | disposition home or self-care (01) ==
LOC: LAB 06:07
PROVIDERS: ATTEND Internal Medicine
DX: I12.9 Hypertensive chronic kidney disease with stage 1 through stage 4 chronic kidney disease, or unspecified chronic kidney disease (principal); N18.9 Chronic kidney disease, unspecified; R79.89 Other specified abnormal findings of blood chemistry; R17 Unspecified jaundice; D75.839 Thrombocytosis, unspecified; E87.6 Hypokalemia; Z86.718 Personal history of other venous thrombosis and embolism
CPT/HCPCS: 36415; 80053; 83735; 85025

== ENCOUNTER 2024-05-04 11:41 | Emergency (ER) | payer BC ==
[~2024-05-04] VITALS: Ht 167.6 cm; Wt 70.0 kg
[2024-05-04] MEDS: SODIUM CHLORIDE 0.9% 1,000 ML IVB ONE (12:13)
[2024-05-04 12:16] VITALS: BP 138/76; RESP 17; TEMP 98.7; O2SAT 94
[2024-05-04 12:17] VITALS: PULSE 124
[2024-05-04 12:17] LABS: Basophils # (auto) 0.2 10 ^3/uL (0-0.2); Eosinophils # (auto) 0.1 10 ^3/uL (0-0.8); Hemoglobin 13.7 g/dL (13.5-17.5); Red Cell Distribution Width 15.9 % (11.8-14.3)
[2024-05-04 12:19] LABS: Eosinophils % (auto) 1.3 % (0.0-7.0); Hematocrit 40.9 % (41.0-53.0); Lymphocytes # (auto) 3.1 10 ^3/uL (0.4-5.4); Lymphocytes % (auto) 29.1 % (10.0-50.0); Mean Corpuscular Hemoglobin 25.1 pg (28.0-32.0); Mean Corpuscular Hgb Conc. 33.5 g/dL (32.0-36.0); Mean Corpuscular Volume 75.1 fL (80.0-100.0); Neutrophils # (auto) 6.2 10 ^3/uL (1.6-8.6); Neutrophils % (auto) 58.6 % (37.0-80.0); Nucleated Red Blood Cells % 0.2 %; Platelet Count (auto) 567 10^3/uL (140-450); Red Blood Cells 5.44 10^6/uL (4.5-5.90); White Blood Cell 10.6 10^3/uL (4.4-10.8)
[2024-05-04] MEDS: LORazepam 0.5 MG TAB PO ONE (12:22)
[2024-05-04 12:27] LABS: Chloride 105 mmol/L (98-107); Potassium 3.7 mmol/L (3.5-5.1); Sodium 141 mmol/L (136-145)
[2024-05-04 12:28] LABS: Anion Gap 8 (5-15); Calcium 9.5 mg/dL (8.7-10.4); Carbon Dioxide 28 mmol/L (20-30)
[2024-05-04 12:33] LABS: BUN/Creatinine Ratio 14.7 (10.0-20.0); Blood Urea Nitrogen 16 mg/dL (9-23); Glucose 99 mg/dL (74-106)
[2024-05-04 13:01] LABS: Albumin 4.5 g/dL (3.2-4.8); Bilirubin, Direct 0.2 mg/dL (<0.3); Magnesium 2.2 mg/dL (1.6-2.6); Total Protein 7.8 g/dL (5.7-8.2)
== END 2024-05-04 16:23 | disposition home or self-care (01) ==
LOC: ER 11:41
DX: D75.839 Thrombocytosis, unspecified (principal); R00.0 Tachycardia, unspecified; I10 Essential (primary) hypertension; E78.5 Hyperlipidemia, unspecified; K21.9 Gastro-esophageal reflux disease without esophagitis; M19.90 Unspecified osteoarthritis, unspecified site; Z98.890 Other specified postprocedural states; Z88.0 Allergy status to penicillin; Z91.010 Allergy to peanuts; Z79.899 Other long term (current) drug therapy
CPT/HCPCS: 36415; 71045; 80048; 80076; 83735; 83880; 84443; 84484; 85025; 93005; 96360; 99285; J7030

== ENCOUNTER → 2024-06-11 | Outpatient (CLI) | payer BC ==
[2024-06-11 16:01] LABS: Alanine Aminotransferase 19 U/L (7-40); Albumin 4.5 g/dL (3.2-4.8); Alkaline Phosphatase 67 U/L (46-116); Anion Gap 7 (5-15); Aspartate Aminotransferase 20 U/L (13-40); BUN/Creatinine Ratio 19.1 (10.0-20.0); Blood Urea Nitrogen 17 mg/dL (9-23); Calcium 9.5 mg/dL (8.7-10.4); Carbon Dioxide 28 mmol/L (20-31); Chloride 104 mmol/L (98-107); Glucose 91 mg/dL (74-106); Potassium 3.6 mmol/L (3.5-5.1); Sodium 139 mmol/L (136-145)
[2024-06-11 16:02] LABS: Bilirubin, Total 0.9 mg/dL (0.2-1.0); Total Protein 7.7 g/dL (5.7-8.2)
[2024-06-11 16:22] LABS: Eosinophils # (auto) 0.1 10 ^3/uL (0-0.8); Eosinophils % (auto) 1.2 % (0.0-7.0); Hematocrit 39.3 % (41.0-53.0); Lymphocytes # (auto) 2.8 10 ^3/uL (0.4-5.4); Lymphocytes % (auto) 27.3 % (10.0-50.0); Mean Corpuscular Hemoglobin 24.8 pg (28.0-32.0); Nucleated Red Blood Cells % 0.1 %; Red Blood Cells 5.29 10^6/uL (4.5-5.90)
[2024-06-11 16:23] LABS: Basophils # (auto) 0.1 10 ^3/uL (0-0.2); Basophils % (auto) 1.3 % (0.0-2.0); Hemoglobin 13.2 g/dL (13.5-17.5); Mean Corpuscular Hgb Conc. 33.5 g/dL (32.0-36.0); Mean Corpuscular Volume 74.2 fL (80.0-100.0); Monocytes # (auto) 0.8 10 ^3/uL (0-1.3); Monocytes % (auto) 7.9 % (0.0-12.0); Neutrophils # (auto) 6.4 10 ^3/uL (1.6-8.6); Neutrophils % (auto) 62.3 % (37.0-80.0); Platelet Count (auto) 560 10^3/uL (140-450); Red Cell Distribution Width 15.5 % (11.8-14.3); White Blood Cell 10.3 10^3/uL (4.4-10.8)
[2024-06-11 16:46] LABS: Erythrocyte Sedimentation Rate 7 mm/hr (0-20)
[2024-06-12 08:06] LABS: Hepatitis B Core Total Antibod Negative (Negative); Rheumatoid Arthritis Factor <10.0 IU/mL (<14.0)
== END | disposition home or self-care (01) ==
LOC: LAB 14:25
PROVIDERS: ATTEND Internal Medicine Rheumatology
DX: R53.83 Other fatigue (principal); M06.9 Rheumatoid arthritis, unspecified
CPT/HCPCS: 36415; 80053; 85025; 85613; 85652; 85670; 85705; 85732; 86141; 86147; 86200; 86431; 87340

== ENCOUNTER → 2024-09-22 | Outpatient (CLI) | payer BC ==
[2024-09-22 06:37] LABS: Urine Bacteria None Seen /hpf (None Seen)
[2024-09-22 07:15] LABS: Urine Blood Negative /uL (Negative); Urine Clarity Clear (Clear); Urine Color Light-Yellow (Yellow); Urine Hyaline Cast FEW /lpf (0 - 2); Urine Protein, UAD Negative (Negative); Urine Specific Gravity 1.007 (1.001-1.035); Urine Squamous Epithelial Cell None Seen /hpf (<5); Urine Urobilinogen Normal (Negative); Urine WBC < 1 /HPF (0-3); Urine pH 6.5 (5.0-9.0)
[2024-09-22 07:24] LABS: Eosinophils # (auto) 0.3 10 ^3/uL (0-0.8); Lymphocytes # (auto) 2.8 10 ^3/uL (0.4-5.4); Nucleated Red Blood Cells % 0.1 %
[2024-09-22 07:27] LABS: Anion Gap 8 (5-15); Carbon Dioxide 30 mmol/L (20-31); Chloride 101 mmol/L (98-107); Potassium 3.5 mmol/L (3.5-5.1); Sodium 139 mmol/L (136-145)
[2024-09-22 07:28] LABS: Basophils # (auto) 0.2 10 ^3/uL (0-0.2); Basophils % (auto) 2.5 % (0.0-2.0); Calcium 10.4 mg/dL (8.7-10.4); Eosinophils % (auto) 3.4 % (0.0-7.0); Hematocrit 41.3 % (41.0-53.0); Hemoglobin 13.7 g/dL (13.5-17.5); Lymphocytes % (auto) 33.9 % (10.0-50.0); Mean Corpuscular Hemoglobin 24.7 pg (28.0-32.0); Mean Corpuscular Hgb Conc. 33.1 g/dL (32.0-36.0); Mean Corpuscular Volume 74.6 fL (80.0-100.0); Monocytes # (auto) 0.8 10 ^3/uL (0-1.3); Monocytes % (auto) 10.1 % (0.0-12.0); Neutrophils # (auto) 4.2 10 ^3/uL (1.6-8.6); Neutrophils % (auto) 50.1 % (37.0-80.0); Platelet Count (auto) 605 10^3/uL (140-450); Red Blood Cells 5.54 10^6/uL (4.5-5.90); Red Cell Distribution Width 15.6 % (11.8-14.3); White Blood Cell 8.4 10^3/uL (4.4-10.8)
[2024-09-22 07:33] LABS: BUN/Creatinine Ratio 12.5 (10.0-20.0); Blood Urea Nitrogen 12 mg/dL (9-23); Glucose 94 mg/dL (74-106)
[2024-09-23 13:01] LABS: Triglycerides 116 mg/dL (< 150)
[2024-09-23 13:03] LABS: Cholesterol 197 mg/dL (< 200)
[2024-09-23 13:11] LABS: HDL Cholesterol 73 mg/dL (40-59); LDL Cholesterol 112 mg/dL (< 100)
== END | disposition home or self-care (01) ==
LOC: LAB 06:09
PROVIDERS: ATTEND Internal Medicine
DX: Z00.01 Encounter for general adult medical examination with abnormal findings (principal); Z13.1 Encounter for screening for diabetes mellitus; I12.9 Hypertensive chronic kidney disease with stage 1 through stage 4 chronic kidney disease, or unspecified chronic kidney disease; N18.2 Chronic kidney disease, stage 2 (mild); E87.6 Hypokalemia; R17 Unspecified jaundice
CPT/HCPCS: 36415; 80048; 80061; 81001; 83036; 84439; 84443; 85025

== ENCOUNTER 2025-03-19 06:16 | Outpatient (CLI) | payer BC ==
[2025-03-19 07:13] LABS: Hematocrit 40.4 % (41.0-53.0); Hemoglobin 13.7 g/dL (13.5-17.5); Mean Corpuscular Hemoglobin 24.9 pg (28.0-32.0); Mean Corpuscular Volume 73.4 fL (80.0-100.0); Nucleated Red Blood Cells % 0.1 %
[2025-03-19 08:26] LABS: Anion Gap 8 (5-15); Carbon Dioxide 29 mmol/L (20-31); Chloride 103 mmol/L (98-107); Potassium 3.6 mmol/L (3.5-5.1); Sodium 140 mmol/L (136-145)
[2025-03-19 08:27] LABS: Calcium 9.5 mg/dL (8.7-10.4)
[2025-03-19 08:31] LABS: Glucose 92 mg/dL (74-106)
[2025-03-19 08:32] LABS: BUN/Creatinine Ratio 13.3 (10.0-20.0); Blood Urea Nitrogen 13 mg/dL (9-23); Triglycerides 143 mg/dL (< 150)
[2025-03-19 08:34] LABS: HDL Cholesterol 59 mg/dL (40-59)
[2025-03-19 08:35] LABS: Cholesterol 245 mg/dL (< 200)
== END 2025-03-19 17:00 | disposition home or self-care (01) ==
LOC: LAB 06:16
PROVIDERS: ATTEND Internal Medicine
DX: I12.9 Hypertensive chronic kidney disease with stage 1 through stage 4 chronic kidney disease, or unspecified chronic kidney disease (principal); N18.2 Chronic kidney disease, stage 2 (mild); E78.5 Hyperlipidemia, unspecified
CPT/HCPCS: 36415; 80048; 80061; 85025

== ENCOUNTER → 2025-05-13 | Outpatient (CLI) | payer BC ==
[2025-05-13 14:28] LABS: Iron 38.0 ug/dL (65-175)
[2025-05-13 14:31] LABS: Total Iron Binding Capacity 254.0 ug/dL (250-425)
[2025-05-14 08:07] LABS: Prostate Specific Antigen 0.1 ng/mL (0.0-4.0)
== END | disposition home or self-care (01) ==
LOC: LAB 13:30
PROVIDERS: ATTEND Internal Medicine Hematology & Oncology
DX: I10 Essential (primary) hypertension (principal); E29.1 Testicular hypofunction; D50.0 Iron deficiency anemia secondary to blood loss (chronic); D47.3 Essential (hemorrhagic) thrombocythemia; R22.43 Localized swelling, mass and lump, lower limb, bilateral; Z90.81 Acquired absence of spleen
CPT/HCPCS: 36415; 83021; 83540; 83550; 84154; 84439; 84443; 85660

== ENCOUNTER 2025-06-24 13:53 | Outpatient (CLI) | payer BC ==
[2025-06-24 14:26] LABS: Hematocrit 38.0 % (41.0-53.0); Hemoglobin 12.3 g/dL (13.5-17.5); Mean Corpuscular Hemoglobin 23.6 pg (28.0-32.0); Mean Corpuscular Volume 72.9 fL (80.0-100.0); Nucleated Red Blood Cells % 0.1 %
[2025-06-24 14:55] LABS: Iron 46.0 ug/dL (65-175)
[2025-06-24 14:56] LABS: Alanine Aminotransferase 21 U/L (7-40); Albumin 4.2 g/dL (3.2-4.8); Alkaline Phosphatase 63 U/L (46-116); Anion Gap 9 (5-15); BUN/Creatinine Ratio 15.9 (10.0-20.0); Blood Urea Nitrogen 18 mg/dL (9-23); Calcium 9.1 mg/dL (8.7-10.4); Carbon Dioxide 27 mmol/L (20-31); Chloride 104 mmol/L (98-107); Glucose 86 mg/dL (74-106); Potassium 3.6 mmol/L (3.5-5.1); Sodium 140 mmol/L (136-145); Total Protein 7.7 g/dL (5.7-8.2)
[2025-06-24 14:57] LABS: Bilirubin, Total 1.1 mg/dL (0.2-1.0); Total Iron Binding Capacity 260.0 ug/dL (250-425)
[2025-06-24 15:00] LABS: Ferritin 310.1 ng/mL (22-322); Free T4 (Free Thyroxine) 1.2 ng/dL (0.89-1.76)
== END 2025-06-24 17:00 | disposition home or self-care (01) ==
LOC: LAB 13:53
PROVIDERS: ATTEND Internal Medicine Hematology & Oncology
DX: I10 Essential (primary) hypertension (principal); E29.1 Testicular hypofunction; D50.9 Iron deficiency anemia, unspecified; D47.3 Essential (hemorrhagic) thrombocythemia; D50.0 Iron deficiency anemia secondary to blood loss (chronic); R22.43 Localized swelling, mass and lump, lower limb, bilateral; Z90.81 Acquired absence of spleen
CPT/HCPCS: 36415; 80053; 82728; 83540; 83550; 84439; 84443; 85025